=== PATIENT | female | born 1995 | race Caucasian/White ===

== ENCOUNTER 2023-07-07 19:06 | Inpatient (IN) | payer BC, SELFPAY ==
[2023-07-07 19:30] VITALS: BP 115/72; PULSE 98; TEMP 36.9
[2023-07-07 19:31] VITALS: PULSE 100; O2SAT 97
[2023-07-07 19:32] VITALS: BMI 30.6
[2023-07-07] MEDS: Lactated Ringers 1,000 ML 50 ML IV (19:45)
[2023-07-07 20:14] LABS: Absolute Lymphocyte Count 2.26 X10^3/uL (0.83-4.51); Absolute Neutrophil Count 9.3 X10^3/uL (2.0-7.7); Basophil# 0.04 X10^3/uL; Basophil% 0.3 % (0-1); Eosinophil# 0.11 X10^3/uL; Eosinophils% 0.9 % (0-5); Hematocrit 32.9 % (37-47); Hemoglobin 10.7 g/dL (12.0-15.0); Lymphocyte # 2.26 X10^3/ul (0.83-4.51); Lymphocyte % 17.6 % (19-41); Mean Corp Hgb Conc 32.5 g/dL (32-36); Mean Corpuscular Hgb 26.4 pg (27.0-32.0); Mean Platelet Vol. 10.7 fl (6.2-12.0); Monocyte# 0.98 X10^3/uL; Monocyte% 7.6 % (0-10); NRBC Flagged by Analyzer 0 % (0-5); Neutrophil # 9.32 X10^3/uL (2.7-7.7); Neutrophil % 72.4 % (47-70); Platelet Count 275 K/mm3 (150-450); RBC Distribution Width SD 41.1 fl (35.1-43.9); Red Blood Count 4.06 M/mm3 (4.2-5.4); White Blood Count 12.9 K/mm3 (4.4-11.0)
[2023-07-07] MEDS: miSOPROStol 25 MCG TABLET PO (20:45)
[2023-07-07] MEDS: 0.9% Normal Saline Single 100 ML IV.SOLN. INTRA-UTER (20:46)
[2023-07-07 20:48] LABS: Syphilis Antibodies Non-reactive
--- NOTE | 2023-07-07 20:54 | PCM.HP.OB ---
HPI - General General Date of Admission: 07/07/23 HPI Narrative ANDRE ROLDAN, is a 27 F at 39.1 weeks gestation who presents for a scheduled, elective induction of labor. Maternal Data Information YANG Calculator Estimated Delivery Date Method Current WG Current Estimate 07/13/23 Manual 39w 1d PFSH PFS Medical History (Updated 07/07/23 @ 20:58 by Christiana Guerrero CNM) Anxiety Home Medications vit no.95-ferrous fumarate 28 mg-folic acid 800 mcg tablet () 1 tab PO DAILY pregnan 07/07/23 [History Last Taken 07/06/23] sertraline 100 mg tablet (Zoloft) 100 mg PO DAILY anxiety 07/07/23 [History Last Taken 07/06/23] Allergy/AdvReac Type Severity Reaction Status Date / Time No Known Allergies Allergy Verified 07/07/23 19:55 Social History Smoking Status: Never smoker History Elective abortions Hx Para 0 Spontaneous abortions Hx # Term Pregnancies Ectopic pregnancies Hx # Pregnancies Multiple births # of living children NST FHR Rate Baby A Baseline: 125 Variability:: Moderate Accelerations:: 15 x 15 Decelerations:: None NST Reactive:: Yes FHR Category:: Category I Uterine Activity:: Irregular ROS Eyes Eyes: Denies blurry vision, change in vision or spots in vision ENT HEENT: Denies dizziness or headache(s) Cardiovascular Cardiovascular: Denies abdominal pain, chest pain or dyspnea Respiratory/Chest Respiratory/Chest: Denies cough, dyspnea, shortness of breath at rest or shortness of breath with exertion Gastrointestinal Gastrointestinal: Denies abdominal pain, diarrhea or vomiting Genitourinary Genitourinary: Denies change in urinary stream, difficulty urinating or dysuria Musculoskeletal Musculoskeletal: Reports none Integumentary Integumentary: Denies rash Neurologic Neurologic: Denies dizziness, headache(s), memory loss or weakness Psychiatric Psychiatric: Reports none Vital Signs Vital Signs Vital Signs: 07/07/23 19:30 07/07/23 19:30 07/07/23 19:31 Temperature Temperature Source Pulse Rate 98 100 Blood Pressure 115/72 BP Systolic 115 BP Diastolic 72 Pulse Ox 07/07/23 19:31 07/07/23 19:30 07/07/23 19:30 Temperature 98.5 F Temperature Source Temporal Pulse Rate Blood Pressure BP Systolic BP Diastolic Pulse Ox 97 Weight Weight: 178 lb 4 oz Body Mass Index (BMI) 30.6 Physical Exam Const alert, oriented x3 and no apparent distress General Appearance: cooperative Orientation / Consciousness: awake Exam Limitations: no limitations HEENT normocephalic Head and Scalp: normal to inspection Eyes General Eye: normal appearance of both eyes Neck full ROM and no lymphadenopathy Lymph Lymphatic: no lymphadenopathy noted Chest inspection of chest normal Resp normal respiratory effort, normal air movement and clear to auscultation bilaterally Effort and Inspection: able to speak in complete sentences and symmetric chest movement Cardio regular rate and regular rhythm GI normal to inspection, nondistended, normoactive bowel sounds Manual OB Exam: presentation cephalic Back/Spine normal ROM Extremity full ROM and no calf tenderness Skin no rashes or lesions noted General Skin Exam: no breakdown Neuro oriented x3 and CN's II-XII intact bilaterally Psych mental status grossly normal and thought process normal Labs Labs Labs: Blood Type Pending Antibody Screen Pending Hct 32.9 % (37-47) L Hgb 10.7 g/dL (12.0-15.0) L Syphilis Total Ab Non-reactive GBS NEG Varicella NON_IMMUNE Assessment & Plan (1) 39 weeks gestation of : (2) Encounter for elective induction of labor: (3) Anxiety: (4) Previous complicated by chromosomal abnormality, antepartum: (5) Maternal varicella, non-immune: PLAN: Plan Admit to labor and delivery Routine labs Start IV and HL GBS negative CE- 1/50/-2 Chan bulb placed without difficulty and filled with 50 cc N/S Cytotec 25 mcg PO x 1 now and repeat every 4 hours up to 6 doses Nursing to call provider before additional doses of Cytotec given Pain medication when indicated Dr. Regalado notified of admission and is collaborating physician
[2023-07-07] MEDS: Acetaminophen 500 MG Tablet PO (21:40)
[2023-07-08] VITALS (102 sets, daily range): BP systolic 82–119; BP diastolic 43–68; PULSE 84–177; TEMP 36.1–37.8; O2SAT 92–100
[2023-07-08] MEDS: miSOPROStol 25 MCG TABLET PO (00:53)
[2023-07-08] MEDS: Oxytocin 15 Units/NS 250ml 15 UNITS/250 ML IV.SOLN 2 UNITS IV (05:50)
[2023-07-08] MEDS: LACTATED RINGERS 500 ML 999 ML IV ×3 (08:37→14:00)
[2023-07-08] MEDS: fentaNYL-bupivacaine (epidural) 100 ML BAG EPIDURAL ×2 (09:21→14:03)
--- NOTE | 2023-07-08 11:25 | PCM.PN.OB ---
Subjective Subjective Patient comfortable with epidural Objective Data Objective Data Vital Signs: Vital Signs Temp Pulse BP Pulse Ox 98.6 F 102 H 100/62 100 07/08/23 09:05 07/08/23 11:20 07/08/23 10:53 07/08/23 11:20 Weight: 178 lb 4 oz Body Mass Index (BMI) 30.6 Intake & Output: Intake and Output for Last 24 Hours 07/06/23 07/07/23 07/08/23 23:59 23:59 23:59 Intake Total 0.83 / 0.83 743.93 / 743.93 Balance 0.83 / 0.83 743.93 / 743.93 Lab / Micro Data 07/07/23 19:45 Labs: Laboratory Results - last 24 hr 07/07/23 19:45: WBC 12.9 H, RBC 4.06 L, Hgb 10.7 L, Hct 32.9 L, MCV 81.0, MCH 26.4 L, MCHC 32.5, RDW Std Deviation 41.1, RDW Coeff of Mary 14.0, Plt Count 275, MPV 10.7, Immature Gran % (Auto) 1.200 H, Neut % (Auto) 72.4 H, Lymph % (Auto) 17.6 L, Josephine % (Auto) 7.6, Eos % (Auto) 0.9, Baso % (Auto) 0.3, Absolute Neuts (auto) 9.3 H, Absolute Lymphs (auto) 2.26, Nucleated RBC % 0, Syphilis Total Ab Non-reactive, Blood Type A POSITIVE, Antibody Screen NEGATIVE Physical Exam Const alert and oriented x3 Narrative: cvx - 3/90/-2, IUPC placed NST FHR Rate Baby A Baseline: 135 Variability:: Moderate Accelerations:: 15 x 15 Uterine Activity:: Q2 min Assessment & Plan (1) 39 weeks gestation of : PLAN: Plan Continue pitocin induction
[2023-07-08] MEDS: Lactated Ringers 1,000 ML 200 ML IV (14:31)
[2023-07-08] MEDS: Ondansetron 4 MG/2 ML Vial IV (16:19)
--- NOTE | 2023-07-08 18:02 | EX.PCM.OBRPT ---
Maternal Data Information YANG Calculator Estimated Delivery Date Method Current WG Current Estimate 07/13/23 Manual 39w 2d Vaginal Delivery Maternal Presentation Maternal Presentation: Elective Induction Type of Induction: Pitocin, Chan Bulb and Cytotec Operative Information Date of Procedure: 07/08/23 Pre-Operative Diagnosis: (1) Maternal request for elective induction Post-Operative Diagnosis: Same Surgery / Procedure Performed: Spontaneous Vaginal Delivery Type of Anesthesia: Epidural Drain: Chan to straight drain Estimated Blood Loss: 450ml Findings Description of Procedure: Patient prepped & draped when C/C/+2. She pushed well to deliver the head. head gently guided to allow delivery of anterior and posterior shoulders. No excess traction placed on head. Body delivered and 3VC clamped & cut in delayed fashion. Placenta delivered with gentle traction and good uterine tone obtained. Presentation: ABHIJEET Amniotic Membrane Rupture Type: Spontaneous Amniotic Fluid Description: Clear Placental Delivery Description: Expressed Placenta Disposition: [facility] Specimen(s) Removed: Placenta Cord Vessel Description: 3 Vessels Cord Entanglement: Around neck x 1, loose Nuchal Cord Compression: Without compression A Gender: Female (Iqra) (1 minute): 8 (5 minute): 9 Delayed Cord Clamping: Yes Post Vaginal Delivery Medications Given After Delivery: IM Pitocin Episiotomy Description: None Laceration: 2nd degree (perineal - repaired with 3-0 vicryl) Complication Complications: None
[2023-07-08] MEDS: Oxytocin 15 Units/NS 250ml 15 UNITS/250 ML IV.SOLN 83 UNITS IV (19:46)
[2023-07-08] MEDS: Ibuprofen 600 MG Tablet PO (20:02)
[2023-07-08] MEDS: Benzocaine/Lanolin/Aloe Vera 1 SPRAY EACH TOPICAL (20:02)
[2023-07-08] MEDS: Acetaminophen 500 MG Tablet 1000 MG PO (20:02)
[2023-07-08] MEDS: Sertraline 100 MG Tablet PO (20:59)
[2023-07-09 02:37] VITALS: BP 111/72; PULSE 94; RESP 16; O2SAT 97
[2023-07-09] MEDS: Ibuprofen 600 MG Tablet PO ×4 (02:39→22:09)
[2023-07-09] MEDS: Acetaminophen 500 MG Tablet 1000 MG PO ×4 (02:40→22:09)
[2023-07-09] MEDS: Senna/Docusate Sodium 1 Tablet PO (08:10)
--- NOTE | 2023-07-09 08:17 | PCM.PROGNOTE ---
Subjective Subjective patient seen at bedside, doing well. Patient reports good pain control. lochia mild. Objective Data Objective Data Vital Signs: Vital Signs Temp Pulse Resp BP Pulse Ox O2 Del Method 98.3 F 94 16 111/72 97 Room Air 07/08/23 21:40 07/09/23 02:37 07/09/23 02:37 07/09/23 02:37 07/09/23 02:37 07/09/23 02:37 Oxygen Delivery Method Room Air Weight: 80.853 kg Body Mass Index (BMI) 30.6 Intake & Output: Intake and Output for Last 24 Hours 07/07/23 07/08/23 07/09/23 23:59 23:59 23:59 Intake Total 0.83 / 0.83 4429.17 / 4429.17 Output Total 2300 / 2300 1000 / 1000 Balance 0.83 / 0.83 2129.17 / 2129.17 -1000 / -1000 Lab / Micro Data 07/07/23 19:45 Physical Exam Const alert and oriented x3 General Appearance: cooperative HEENT normocephalic Neck General: normal visual inspection GI soft to palpation and non-distended GI Narrative: Fundus firm Extremity normal to inspection and no calf tenderness Skin no rashes or lesions noted Neuro oriented x3 and CN's II-XII intact bilaterally Psych mental status grossly normal Assessment & Plan Assessment/Plan (1) Vaginal delivery: PLAN: Plan PPD#1 , Doing well Routine care pain mgmt ambulation
[2023-07-09] MEDS: Sertraline 100 MG Tablet PO (08:25)
[2023-07-09 08:36] VITALS: BP 100/67; PULSE 93; RESP 16; TEMP 36.6
[2023-07-09 13:00] VITALS: BP 106/60; PULSE 92; RESP 16; TEMP 36.4
--- NOTE | 2023-07-09 16:15 | CASEMGMT ---
Social Work Assessment Labor and Delivery Unit Patient Address:[address] [place] [address] [place] [address] Phone number: [phone] Date of Referral: 07/09/23 Time of Referral:? 08 Referred By: Charge nurse Date of Intervention: ??07/09/23 Time of Intervention:? 1329 Reason for Referral:?anxiety Sw completed chart review and acknowledges social work consult due to maternal history of anxiety. Sw presented to bedside and introduced self to mother of baby (SYED Elmore) and completed psychosocial assessment. History obtained from: medical records, MOB Household composition: Currently residing in the family home is MOB and father of baby (BERHANE Hartmann). LULU denies any concerns with housing. Patient's parent/guardian status:? ?LULU states that parents have been together for three years. They met on a dating brenda while they were both residing in [place]. LULU denies any concerns/ history of domestic violence or intimate partner violence. Medical History: ?LLUU is 27 year old female who is 1, para 0-now 1 following labor and delivery of baby. LULU received routine care during with [facility]. LULU presented for induction of labor at 39 weeks gestation and delivered baby on 07/08/23 via vaginal delivery. Baby girl, named Iqra, was born weighing 7lb 6oz and her apgars were 8 and 9 at one and five minutes of life respectfully. Educational Status:? Both parents graduated from high school. LULU states that she has obtained her PhD. Financial Status: Both parents are employed. 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 BOBBY works as a specialty food products supervisor. Infant Supplies:?? Parents have obtained everything they need for baby including: car seat, safe sleep space, clothes, diapers, wipes and a breast pump. Childcare/Caregiver(s):? LULU states that when both parents are working they have a daycare arranged to provide care for baby. Transportation:?? No barriers Programs/Agencies Involved: ???LULU states that she is not connected to any resources within the community at this time, but is open to getting connected to counseling services. Children Services/Legal Issues:??? No history of involvement, no issues or concerns warranting a referral to be made at this time. Behavioral Health Issues: ??Mental Health History:??LULU states that FOB does not have a mental health history. MOB states that [facility] has been diagnosed with anxiety and depression. MOB asked appropriate questions about baby blues and depression and anxiety. MOB states that she is prescribed zoloft. MOB states that she was able to attend counseling during her last years in college and it helped her immensely. ? Substance Use History:??MOB denies substance use prior to and during . Family History:???MOB denies family history of addiction and mental health. ?? Drug Screens: ??No urine screens observed in chart review Family/Social Stressors:? MOB denies current stressors or concerns. Support Systems: MOB states that she and FOB have supports but a lot of them live far away. MOB receptive to getting connected to a mommy and me group to get more connected with other moms in her area. Depression/Shaken Baby/Safe Sleeping:? Sw talked at length regarding signs and symptoms of baby blues and depression and anxiety to be on the lookout for. Sw provided MOB with literature to review and encouraged MOB to get connected to mental health supports to help her during her period. MOB was receptive to this. MOB completed Cardwell depression scale and her score was a 5. Sw educated MOB on shaken baby prevention and ABCs of safe sleep. MOB expressed understanding. ASSESSMENT:? MOB talkative and receptive to sw involvement and support. MOB had knowledge about baby blues and depression and anxiety to be on the lookout for. MOB stated that FOB is a big support for her and helps to realize when she is struggling with something. MOB stated that she has obtained all necessary baby supplies and has supports in place although they live far away but she can talk to them on the phone as often as needed. PLAN:? MOB and baby to be discharged when medically ready. ?No other services requested or indicated. Lydia Nuno, [employer], [employer] COVER INSPECTOR
[2023-07-09 20:55] VITALS: BP 112/72; PULSE 100; RESP 16; TEMP 36.8; O2SAT 98
[2023-07-10 02:19] VITALS: BP 96/53; PULSE 95; RESP 16; TEMP 37.2
[2023-07-10] MEDS: Acetaminophen 500 MG Tablet 1000 MG PO ×2 (04:30→10:37)
[2023-07-10] MEDS: Ibuprofen 600 MG Tablet PO ×2 (04:31→10:37)
[2023-07-10 08:14] VITALS: BP 101/65; PULSE 86; RESP 16; TEMP 36.6
--- NOTE | 2023-07-10 09:47 | CASEMGMT ---
Social Work RN inquiring if pt was seen, there is an assessment in. PHQ-9 completed today and pt scored a 5. Pt saw SW yesterday, SW did check in today w/MOB to see if anything else is needed. MOB declined any further needs, was given resources yesterday. No further needs anticipated. MELISA Brandt
--- NOTE | 2023-07-10 09:51 | PCM.DC.SUM ---
Providers Date of Admission: 07/07/23 Primary Care Physician: [facility] Reason For Visit: VAGINAL DELIVERY Diagnosis Discharge Diagnosis (1) Vaginal delivery: Status: Acute Code(s): O80 - Encounter for full-term uncomplicated delivery Plan PPD 2 D/C home with follow up in office Medications at Discharge Home Medications vit no.95-ferrous fumarate 28 mg-folic acid 800 mcg tablet () 1 tab PO DAILY pregnan 07/07/23 sertraline 100 mg tablet (Zoloft) 100 mg PO DAILY anxiety 07/07/23 Hospital Course Operations None Procedures None Summary of Care Provided Minutes Spent on Discharge: 15 Hospital Course: Patient had . Hospital course was uneventful. Physical Exam Narrative Patient seen at bedside. Feeling good. Ambulating and voiding without difficulty. Desires discharge home today. Const alert and no apparent distress General Appearance: cooperative and comfortable Exam Limitations: no limitations HEENT normocephalic Eyes General Eye: normal appearance of both eyes Neck full ROM General: normal visual inspection Chest Chest: symmetrical chest wall rise Resp normal respiratory effort and normal air movement Effort and Inspection: symmetric chest movement Auscultation: clear to auscultation bilaterally Cardio regular rate and regular rhythm GI normal to inspection, nondistended, normoactive bowel sounds Back/Spine normal ROM Extremity full ROM and no calf tenderness General Extremity: normal exam except as noted Skin no rashes or lesions noted Neuro CN's II-XII intact bilaterally Psych mental status grossly normal Weight / BMI Weight Weight: 178 lb 4 oz Body Mass Index (BMI) 30.6 ABG / Lab / Microbiology Data 07/07/23 19:45 D/C Instructions Discharge Diet: No restrictions Discharge Activity: Return to Normal Activity, May Shower and May Take a Tub Bath May resume sexual activity in: 4-6 weeks Weight Bearing Status: Weight bearing as tolerated Call your doctor if you observe: Fever of 101 or Higher, Inability to urinate, Using more than 1 pad per hour, Shortness of breath, Dizziness, Swelling in the ankles, Chest pain, Calf discomfort and Uncontrolled pain Please Follow Up With: Christiana Guerrero CNM When: 2 weeks virtual or in office Meaningful Use Info Meaningful Use Diagnoses (Choose all that apply): None applicable Discharge Plan Admission Admit Date/Time: 07/07/23 19:06 Primary Reason for Your Visit: Labor and Delivery Attending Provider: Rafita Topete Primary Care Provider: Care Physician,No Primary Discharge Orders/Prescriptions Prescriptions: Continued sertraline [Zoloft] 100 mg tablet 100 mg PO DAILY PNV cmb#95-ferrous fumarate-FA [] 28 mg iron- 800 mcg tablet 1 tab PO DAILY Referrals / Follow Up: Care Physician,No Primary [Primary Care Provider] - Disposition Disposition (needs filled in before D/C Order can be placed): Home, Self Care
[2023-07-10] MEDS: Sertraline 100 MG Tablet PO (09:53)
== END 2023-07-10 11:05 | disposition home or self-care (01) | DRG 807 ==
PROVIDERS: Advanced Practice Midwife; Admitting Provider Obstetrics & Gynecology; Visit Provider Obstetrics & Gynecology
DX: O42.92 Full-term premature rupture of membranes, unspecified as to length of time between rupture and onset of labor (principal); Z37.0 Single live birth; O99.344 Other mental disorders complicating childbirth; F41.9 Anxiety disorder, unspecified; O69.81X0 Labor and delivery complicated by cord around neck, without compression, not applicable or unspecified; O70.1 Second degree perineal laceration during delivery; Z3A.39 39 weeks gestation of pregnancy; Z79.899 Other long term (current) drug therapy; Z87.59 Personal history of other complications of pregnancy, childbirth and the puerperium
CPT/HCPCS: 59025; 59050; 85025; 86780; 86850; 86900; 86901; 99221; J7120; G0378; J2405